=== PATIENT | female | born 1950 | race Caucasian/White ===

== ENCOUNTER 2016-09-25 12:41 | Inpatient (IN) | payer OTHER, MEDICARE ==
[~2016-09-25] VITALS: Ht 165.1 cm; Wt 53.1 kg
[~2016-09-25 12:41] MED LIST: ACIDOPHILUS1 CAP PO; ALENDRONATE SOD70 MG PO; CALCIUM + D 6001 TAB PO; CLEARLAX17 GM/Dose PO; DOCUSATE SOD100 MG PO; DOK PLUS 50 MG-1 TAB PO; DOXYCYCLINE20 MG PO; LIORESAL 10MG T10 MG PO; METOPROLOL TART25 M1 PO; NEURONTIN100 MG PO; PERIDEX 480 ML480 ML PO; PRAVASTATIN20 MG PO; REMERON 15MG TA15 MG PO; TAB-A-VITE1 TA1 PO; TOPAMAX200 MG PO
--- NOTE | 2016-09-25 12:48 | ED MVC/FALL/TRAUMA COMPLAINT ---
History of Present Illness General Chief Complaint: Fall Stated Complaint: BIBA FOR FALL Source: patient, EMS Exam Limitations: dementia Vital Signs & Intake/Output Vital Signs & Intake/Output Vital Signs Date Time Temp Pulse Resp B/P B/P Pulse O2 O2 Flow FiO2 Mean Ox Delivery Rate 09/25 1725 97.6 101 18 132/73 99 Room Air 09/25 1451 97.0 88 20 130/75 96 Room Air 09/25 1247 97.3 73 15 150/67 98 Room Air Room Air 09/25 1247 97.2 72 18 150/67 97 Room Air Allergies Coded Allergies: tuberculin, purified protein deriva (UNKNOWN 09/25/16) Reconcile Medications Baclofen (Lioresal) 10 MG TABLET 1 TAB PO TID TIA (Reported) Calcium/Vitamin D (Calcium + D) 600 MG/200 IU TAB 1 TAB PO BID VIT DEF ( Reported) Chlorhexidine Gluconate (Peridex 480 Ml) 480 ML LIQ 15 ML PO BID UNKNOWN ( Reported) Citalopram Hydrobromide (Citalopram HBr) 10 MG TABLET 1 TAB PO DAILY DEPRESSION (Reported) Docusate Sodium 100 MG CAPSULE 2 CAP PO DAILY UNKNOWN (Reported) Ferrous Sulfate 325 MG (65 MG IRON) TABLET SUPPLEMENT (Reported) Gabapentin (Neurontin) 100 MG CAP 1 CAP PO AT BEDTIME UNKNOWN (Reported) Metoprolol Tartrate 25 MG TABLET 0.5 TAB PO D BP (Reported) Mirtazapine (Remeron 15MG Tab) 15 MG TABLET 0.5 TAB PO QPM UNKNOWN (Reported) MULTIVITAMIN (Tab-A-Marlin) 1 EACH TABLET 1 TAB PO DAILY SUPPLEMENT (Reported) Polyethylene Glycol 3350 (Miralax) 17 GRAM POWD.PACK 1 PAC PO BID CONSTIPATION (Reported) dissolve in water Pravastatin Sodium (Pravastatin) 20 MG TAB 1 TAB PO QPM CHOLESTEROL (Reported ) SENNOSIDES/DOCUSATE SODIUM (Dok Plus Tablet) 8.6 MG-50 MG TABLET 1 TAB PO AT BEDTIME UNKNOWN (Reported) Topiramate (Topamax) 200 MG TAB 1 TAB PO BID UNKNOWN (Reported) Warfarin Sodium (Coumadin) 7.5 MG TABLET 1 TAB PO DAILY THINNER (Reported) Triage Nurses Notes Reviewed? yes HPI: 66 yo F PMH HTN, HLD, A-Fib (on coumadin), CVA presenting with right knee pain s /p fall. Patient was in wheelchair, pushed over small step, fell off onto right side with resulting right knee deformity/crepitus and pain. Unclear head/neck trauma or LOC. C/O right knee pain. Denies SOB, chest pain, abdominal pain, headache, N/V, focal neurologic Sx. (ARISTEO TOBIAS MD) Past History Medical History Any Pertinent Medical History? see below for history Pneumonia Vaccine: 01/27/07 Influenza Vaccine: 01/18/10 Surgical History Surgical History: unobtainable Psychosocial History What is your primary language Romanian Family History Hx Contributory? Yes (ARISTEO TOBIAS MD) Review of Systems Review of Systems Constitutional: Reports: no symptoms. Eyes: Reports: no symptoms. Ears, Nose, Throat, Mouth: Reports: no symptoms. Respiratory: Reports: no symptoms. Cardiovascular: Reports: no symptoms. Gastrointestinal/Abdominal: Reports: no symptoms. Genitourinary: Reports: no symptoms. Musculoskeletal: Reports: joint pain, joint swelling. Skin: Reports: no symptoms. Neurological/Psychological: Reports: no symptoms. All Other Systems: Reviewed and Negative (ARISTEO TOBIAS MD) Physical Exam Physical Exam General Appearance: well developed/nourished, no apparent distress, alert, awake Head: atraumatic, normal appearance Eyes: Bilateral: normal appearance, PERRL, EOMI. Neck: normal inspection, no midline tenderness Respiratory: normal breath sounds, chest non-tender, no respiratory distress Cardiovascular: regular rate/rhythm, normal peripheral pulses Peripheral Pulses: 2+ dorsalis pedis (R), 2+ dorsalis pedis (L) Gastrointestinal: normal bowel sounds, soft, non-tender Back: normal inspection, no vertebral tenderness Neurologic/Psych: no motor/sensory deficits, awake, alert Comments: HEENT: Atraumatic C-Spine: No midline c-spine TTP Chest: No TTP over anterior chest wall or clavicles, equal breath sounds bilaterally Abdomen: Soft and nontender to palpation throughout RLE: TTP with crepitus over distal femur, 2+ DP pulse Core Measures ACS in differential dx? No Severe Sepsis Present: No Septic Shock Present: No (ARISTEO TOBIAS MD) Progress Differential Diagnosis: aoritic dissection, abd injury, C/T/L spine injury, ext injury, ICH, pelvis injury, pnemothorax, spinal cord injury Plan of Care: Orders Procedure Date/time Status Regular Diet 09/26 D Active PROTHROMBIN TIME 09/26 0600 Active CBC WITHOUT DIFFERENTIAL 09/26 0600 Active BASIC ELECTROLYTES PLUS BUN&CR 09/26 0600 Active Nothing by Mouth 09/25 D Active Add-on Test (ER Only) 09/25 1740 Active Pathway - chart 09/25 1548 Active House Staff 09/25 1548 Active Patient Data 09/25 1548 Active Code Status 09/25 1548 Active Patient Data 09/25 1543 Active Admit to inpatient 09/25 1538 Active TROPONIN LEVEL 09/25 1320 Complete PARTIAL THROMBOPLASTIN TIME 09/25 1310 Complete PROTHROMBIN TIME 09/25 1310 Complete CBC WITHOUT DIFFERENTIAL 09/25 1310 Complete BASIC METABOLIC PANEL 09/25 1310 Complete EKG 09/25 1310 Active TYPE & SCREEN (NOT X-MATCH) 09/25 1310 Complete Intake & Output 09/25 1258 Active VTE Mechanical Prophylaxis 09/25 UNK Complete Current Medications Sig/Javier Start time Last Medication Dose Stop Time Status Admin Pravastatin Sodium 20 MG 1700 09/26 1700 AC (Pravachol) Citalopram 10 MG DAILY 09/26 1000 AC Hydrobromide (Celexa) Metoprolol Tartrate 12.5 MG DAILY 09/26 1000 AC (Lopressor) Ferrous Sulfate 325 MG BID 09/25 2200 AC (Feosol) Gabapentin 100 MG AT BEDTIME 09/25 2200 AC (Neurontin) Mirtazapine 7.5 MG QPM 09/25 2200 AC (Remeron) Topiramate 200 MG BID 09/25 2200 AC (Topamax) Acetaminophen 1,000 MG Q6P PRN 09/25 1745 AC (Ofirmev) N/A 1 UNIT (No Carrier) Chlorhexidine 15 ML BID 09/25 1730 AC Gluconate (Peridex 0.12% Oral Rinse) Baclofen 10 MG TID 09/25 1729 AC (Lioresal 10MG Tablet) Ondansetron HCl 4 MG Q6P PRN 09/25 1715 AC (Zofran) Sodium Chloride 1,000 ML Q13H 09/25 1715 AC 06/08 (Normal Saline 0.9%) 09/26 613 1748 Acetaminophen 325 MG Q6 PRN 09/25 1600 AC (Tylenol) Oxycodone HCl 5 MG Q6 PRN 09/25 1600 AC (Roxicodone) Oxycodone/ 2 TAB Q6 PRN 09/25 1600 CAN Acetaminophen (Percocet) Laboratory Tests 09/25/16 1320: Anion Gap 9, Estimated GFR 50 L, BUN/Creatinine Ratio 13.6, Glucose 111 H, Calcium 9.4, Troponin I < 0.01, PT 19.9 H, INR 1.91 H, APTT 31, CBC w Diff NO MAN DIFF REQ, RBC 3.85 L, MCV 90.8, MCH 29.7, RDW 13.8, MPV 7.6, Gran % 78.4 H , Lymphocytes % 15.4 L, Monocytes % 3.2, Eosinophils % 2.4, Basophils % 0.6, Absolute Granulocytes 8.7 H, Absolute Lymphocytes 1.7, Absolute Monocytes 0.4, Absolute Eosinophils 0.3, Absolute Basophils 0.1, PUBS MCHC 32.7 L Physician MDM: 66 yo F on coumadin presenting with right leg pain/deformity s/p fall from wheelchair. VSS, trauma exam as above. DDx: Fracture, dislocation, ICH. CBC, BMP unermarkabkle. CT head/c-spine negative, c-collar cleared without TTP and full ROM. CXR, PXR unermarkable. RLE XR with distal comminuted femur fracture. Dr. Estevez/Orthopedic PA consulted, evaluated patient, reduced fracture deformity, knee immobilizeer placed. Admit to medicine for monitoring, PT, further management. (MICHELINE DONALD,ARISTEO) Departure Departure Disposition: STILL A PATIENT Condition: Stable Clinical Impression Primary Impression: Femur fracture, right Secondary Impressions: Closed head injury, Fall Referrals: IRIS DONALD,Aly MAKI (PCP/Family) Departure Forms: Customer Survey General Discharge Information Admission Note Spoke With: AMAN WYATT M.D Documentation of Exam: Documentation of any treatments & extenuating circumstances including Concerns Regarding Discharge (functional status, medication knowledge or non-compliance, living conditions, etc.) that warrant an admission rather than observation: [ Patient presents with fall out of her wheelchair, taking Coumadin, found to have right distal femoral fracture, patient requires admission for monitoring for decompensation related to femoral fracture, orthopedic consult, IV pain control, physical therapy, if discharged she has a high likelihood of decompensation given her anticoagulated status, possibly leading to .] (MICHELINE DONALD,ARISTEO) PA/OIL WELL FISHING TOOL OPERATOR Co-Sign Statement Statement: ED Attending supervision documentation- [] I saw and evaluated the patient. I have also reviewed all the pertinent lab results and diagnostic results. I agree with the findings and the plan of care as documented in the PA's/OIL WELL FISHING TOOL OPERATOR's documentation. [X] I have reviewed the ED Record and agree with the PA's/OIL WELL FISHING TOOL OPERATOR's documentation. [] Additions or exceptions (if any) to the PAs/OIL WELL FISHING TOOL OPERATOR's note and plan are summarized below: [] (KODI RICHMOND DO
[2016-09-25 13:36] LABS: ABSOLUTE BASOPHIL COUNT 0.1 /CUMM (0.0-0.2); ABSOLUTE EOSINOPHIL COUNT 0.3 /CUMM (0.0-0.7); ABSOLUTE GRANULOCYTE CT 8.7 /CUMM (1.4-6.5); ABSOLUTE LYMPH COUNT 1.7 /CUMM (1.2-3.4); ABSOLUTE MONOCYTE COUNT 0.4 /CUMM (0.10-0.60); BASOPHIL % 0.6 % (0.0-2.0); EOSINOPHIL % 2.4 % (0-5); GRANULOCYTE % 78.4 % (42.2-75.2); MEAN CORPUSCULAR HGB 29.7 PG (27.0-31.0); MEAN CORPUSCULAR HGB CONC 32.7 G/DL (33.0-37.0); MEAN CORPUSCULAR VOLUME 90.8 FL (81.0-99.0); MEAN PLATELET VOLUME 7.6 FL (7.4-10.4); PLATELET COUNT 278 /CUMM (130-400); RBC DISTRIBUTION WIDTH 13.8 % (11.5-14.5); RED BLOOD CELL CT 3.85 /CUMM (4.20-5.40); WHITE BLOOD CELL COUNT 11.2 /CUMM (4.8-10.8)
[2016-09-25 13:45] LABS: PT 19.9 SEC (9.4-12.5); PTT 31 SEC (25-37)
--- NOTE | 2016-09-25 14:55 | RADIOLOGY REPORT ---
EXAMINATION: Pelvis, right femur, right tibia and fibula and right ankle. CLINICAL INFORMATION: Pelvic fracture status post fall. COMPARISON: Right femur 04/02/2010. TECHNIQUE: Right tibia and fibula 2 views. Right ankle 3 views. AP pelvis one view and right femur 2 views. FINDINGS: AP PELVIS: there is old right hip nail in place for an old healed fracture. The left hip appears normal. The AP pelvis and bilateral SI joints are normal. RIGHT FEMUR: There is a comminuted fracture distal femur with possible extension to the intra-articular surface, right knee. There is a right hip nail for an old healed right femoral neck fracture RIGHT TIBIA AND FIBULA: There is no visible acute fracture or dislocation involving right tibia and fibula. The soft tissues are normal. RIGHT ANKLE: There is no visible acute fracture or dislocation seen. The ankle mortise and subtalar joints are normal. There is diffuse osteopenia involving the distal tibia, fibula and the tarsal bones. The soft tissues are normal. IMPRESSION: Comminuted fracture distal right tibia with high suspicion of fracture extension to the articular surface right knee. Rest of the right femur is unremarkable. The right tibia and fibula are intact. There is mild osteopenia. Intact right ankle with mild osteopenia. No fracture seen. There is a right hip nail for an old healed right hip fracture. Otherwise the AP pelvis is unremarkable.
[2016-09-25] MEDS ORDERED: CITALOPRAM HBR10 MG PO (14:56)
[2016-09-25] MEDS ORDERED: FERROUS SULFAT325 M3 (14:58)
[2016-09-25] MEDS ORDERED: MIRALAX17 G1 PO (15:00)
--- NOTE | 2016-09-25 15:00 | CT SCAN REPORT ---
EXAMINATION: CT HEAD AND CERVICAL SPINAL. CLINICAL INFORMATION: Following head trauma. COMPARISON: No relevant prior imaging available. TECHNIQUE: Environmental Economist images were obtained. CT acquisition of the head and cervical spinal was performed without intravenous administration of contrast. Data was reformatted into multiplanar images at the acquisition workstation. DLP: 988.97 mGy-cm. FINDINGS: Head: There is chronic gliosis and encephalomalacia within the vascular territories of the left anterior and middle cerebral artery. 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 There is no acute intracranial hemorrhage or abnormal extra-axial collection. No intracranial mass effect or midline shift. Lateral and third ventricles are proportionate to the subarachnoid spaces. No hydrocephalus. Cruz-white matter differentiation is grossly preserved and there is no evidence of acute territorial infarct. The skull base is intact. There is no mastoid or middle ear effusion. No evidence of active paranasal sinus disease. Cervical spine: There is anatomic alignment and position of the vertebral bodies and posterior elements of the cervical spine the sagittal dimension. Vertebral body heights are preserved. There is no evidence of acute cervical spinal fracture. No abnormal prevertebral soft tissue swelling. There is mild degenerative arthrosis of the atlantodental joint. Grossly no evidence of canal compromise. Soft tissues of the neck including the thyroid gland are unremarkable. Calcified atheromatous plaque is visualized at both carotid bifurcations. Mild pleural-parenchymal scarring at the apices of both lungs. IMPRESSION: Head: There are chronic changes of an aneurysm clipping and old infarcts within the left anterior and middle cerebral artery territories. No evidence of acute intracranial hemorrhage. Cervical spine: No acute cervical spine fracture.
[2016-09-25] MEDS ORDERED: COUMADIN7.5 M1 PO (15:01)
--- NOTE | 2016-09-25 16:28 | PN- Orthopedic ---
Subjective Subjective: Patient present to the ER with a fall from her wheelchair, noted to have a comminuted right distal femur fracture. 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 On chronic coumadin therapy for a fib. Objective Vital Signs and I&Os Vital Signs Date Time Temp Pulse Resp B/P B/P Pulse O2 O2 Flow FiO2 Mean Ox Delivery Rate 09/25 1451 97.0 88 20 130/75 96 Room Air 09/25 1247 97.3 73 15 150/67 98 Room Air Room Air 09/25 1247 97.2 72 18 150/67 97 Room Air Intake & Output 09/25 1600 09/25 0800 09/25 0000 09/24 1600 09/24 0800 09/24 0000 Intake Total Output Total Balance Patient 140 lb Weight Weight Estimated Measurement Method Physical Exam: patient appears to have mild confusion There is dry blood noted in her mouth No respiratory distress Right lower extremity with swelling at the distal femur region and tenderness on palpation. The knee is flexed at 90 and rotated. Gentle traction was applied to the right lower extremity and the extremity was extended into a near anatomic position clinically at the bedside by myself. A knee immobilizer was then applied to the right lower extremity. Neurovascular intact postprocedure. Assessment/Plan Assessment/Plan Full consult to follow by Dr. Estevez later this evening Discussed with Dr. Estevez, patient is a nonambulator, we are not planning any surgical intervention at this time. She was placed in a knee immobilizer by myself at the bedside, positive dorsal pedal pulse distally after procedure. She should be kept nonweightbearing, admitted to medicine for pain medication and monitoring for acute blood loss anemia due to femur fracture and patient being on Coumadin. Would temporarily hold her INR tonight and recheck her H&H tomorrow to assess for blood loss. Core Measures/Miscellaneous Venous Thromboembolism VTE Risk Factors: Age > 40 VTE Contraindications: No Contraindications VTE Diagnosis: No Beta Anurag Is Beta Anurag a Home Med? No Antibiotics Is Patient on Antibiotics? No
--- NOTE | 2016-09-25 16:29 | RADIOLOGY REPORT ---
EXAMINATION: XR PORTABLE CHEST CLINICAL INFORMATION: Fall. Chest pain. COMPARISON: 03/29/2010 TECHNIQUE: Portable frontal view of the chest was obtained. FINDINGS: Cardiomegaly is stable. The image is acquired in obliquity, somewhat obscuring the left base. No definitive consolidation. No pulmonary edema, pleural effusion, or pneumothorax. The bones appear demineralized without definitive acute osseous abnormality. IMPRESSION: Stable cardiomegaly. No definitive acute intrathoracic abnormality, accounting for some obscuration of the left base.
--- NOTE | 2016-09-25 16:30 | History & Physical ---
See Addendum ANJANA LERMA 09/25/16 1610: General Information and HPI MD Statement: I have seen and personally examined PATEL PENG and documented this H&P. The patient is a 66 year old F who presented with a patient stated chief complaint of [right tibia comminuted fracture]. Source of Information: patient, EMS Exam Limitations: no limitations History of Present Illness: Patient is a 66-year-old female long-term resident of [facility] with past medical history of atrial fibrillation on Coumadin, history of hemorrhagic stroke, status post craniotomy with residual right hemiparesis, seizure disorder, depression, GERD, status post left anterior communicating artery aneurysm repair, recurrent bleeding was brought into the ER today after referral at the facility. As per the EMS reports, patient fell down this morning from her wheelchair to the pavement. It was a witnessed mechanical fall. The story is quite unclear. Patient reports that she lost her balance and fell down on the chair landing on her right knee and felt a lot of pain. EMS was called by the facility paperwork and patient was collared. Patient denies any chest pain, shortness of breath, nausea, vomiting, dizziness, aura, seizure-like activity, loss of consciousness. She was brought to the hospital for evaluation immediately. In the ER during examination crepitation was felt over the right knee. Patient was tolerating pain well and was coherent during the examination. In the ED vitals temperature 97.2, pulse 72, respiration 18, blood pressure 150/ 67, saturating 97% on room air Labs showed a white count of 11.2, H&H 11.4/ 35, normal electrolytes, creatinine 1.1(baseline 0.9), BUN 15, INR 1.91. EKG showed atrial fibrillation, QTC 444. Tibiofibular x-ray showed Comminuted fracture distal right tibia with high suspicion of fracture extension to the articular surface right knee. Intact right ankle with mild osteopenia. There is a right hip nail for an old healed right hip fracture. Head CT chronic changes of an aneurysm clipping and old infarcts within the left anterior and middle cerebral artery territories. No evidence of acute intracranial hemorrhage. Cervical spine: No acute cervical spine fracture. Patient received IV morphine and IV Zofran in the ED. Allergies/Medications Allergies: Coded Allergies: tuberculin, purified protein deriva (UNKNOWN 09/25/16) Home Med list Baclofen (Lioresal) 10 MG TABLET 1 TAB PO TID TIA (Reported) Calcium/Vitamin D (Calcium + D) 600 MG/200 IU TAB 1 TAB PO BID VIT DEF ( Reported) Chlorhexidine Gluconate (Peridex 480 Ml) 480 ML LIQ 15 ML PO BID UNKNOWN ( Reported) Citalopram Hydrobromide (Citalopram HBr) 10 MG TABLET 1 TAB PO DAILY DEPRESSION (Reported) Docusate Sodium 100 MG CAPSULE 2 CAP PO DAILY UNKNOWN (Reported) Ferrous Sulfate 325 MG (65 MG IRON) TABLET SUPPLEMENT (Reported) Gabapentin (Neurontin) 100 MG CAP 1 CAP PO AT BEDTIME UNKNOWN (Reported) Metoprolol Tartrate 25 MG TABLET 0.5 TAB PO D BP (Reported) Mirtazapine (Remeron 15MG Tab) 15 MG TABLET 0.5 TAB PO QPM UNKNOWN (Reported) MULTIVITAMIN (Tab-A-Marlin) 1 EACH TABLET 1 TAB PO DAILY SUPPLEMENT (Reported) Polyethylene Glycol 3350 (Miralax) 17 GRAM POWD.PACK 1 PAC PO BID CONSTIPATION (Reported) dissolve in water Pravastatin Sodium (Pravastatin) 20 MG TAB 1 TAB PO QPM CHOLESTEROL (Reported ) SENNOSIDES/DOCUSATE SODIUM (Dok Plus Tablet) 8.6 MG-50 MG TABLET 1 TAB PO AT BEDTIME UNKNOWN (Reported) Topiramate (Topamax) 200 MG TAB 1 TAB PO BID UNKNOWN (Reported) Warfarin Sodium (Coumadin) 7.5 MG TABLET 1 TAB PO DAILY THINNER (Reported) Past History Travel History Traveled to [place] past 21 day No Medical History Neurological: CVA W R SIDE DEFICIT Pneumonia Vaccine: 01/27/07 Influenza Vaccine: 01/18/10 Surgical History Surgical History: arthroscopy Review of Systems Review of Systems Constitutional: Reports: malaise, weakness. EENTM: Reports: no symptoms. Cardiovascular: Reports: no symptoms. Respiratory: Reports: no symptoms. GI: Reports: no symptoms. Genitourinary: Reports: no symptoms. Musculoskeletal: Reports: joint pain (right leg pain). Skin: Reports: no symptoms. Neurological/Psychological: Reports: no symptoms. Exam & Diagnostic Data Last 24 Hrs of Vital Signs/I&O Vital Signs Date Time Temp Pulse Resp B/P B/P Pulse O2 O2 Flow FiO2 Mean Ox Delivery Rate 09/25 1451 97.0 88 20 130/75 96 Room Air 09/25 1247 97.3 73 15 150/67 98 Room Air Room Air 09/25 1247 97.2 72 18 150/67 97 Room Air Intake & Output 09/25 1600 09/25 0800 09/25 0000 Intake Total Output Total Balance Patient 63.503 kg Weight Weight Estimated Measurement Method Physical Exam General Appearance Alert, Oriented X3, Cooperative, No Acute Distress Skin No Rashes, No Breakdown Skin Temp/Moisture Exam: Warm/Dry Sepsis Skin Exam (color): Normal for Ethnicity HEENT Atraumatic, PERRLA, poor dental hygiene, bleeding from the mouth, halitosis Neck Supple, No JVD Lymphatic Cervical nl Cardiovascular Normal S1, irregularly irregular heart Lungs Clear to Auscultation, Normal Air Movement Abdomen tense abdomen Neurological Normal Tone, Sensation Intact, right sided hemiparesis. power 3/5 in left lower and left upper extremity Extremities 1+ pitting edema lower extremities, right extremity shortened and internally rotated Last 24 Hrs of Labs/Олег: Laboratory Tests 09/25/16 1320: Anion Gap 9, Estimated GFR 50 L, BUN/Creatinine Ratio 13.6, Glucose 111 H, Calcium 9.4, PT 19.9 H, INR 1.91 H, APTT 31, CBC w Diff NO MAN DIFF REQ, RBC 3.85 L, MCV 90.8, MCH 29.7, RDW 13.8, MPV 7.6, Gran % 78.4 H, Lymphocytes % 15.4 L, Monocytes % 3.2, Eosinophils % 2.4, Basophils % 0.6, Absolute Granulocytes 8.7 H, Absolute Lymphocytes 1.7, Absolute Monocytes 0.4, Absolute Eosinophils 0.3, Absolute Basophils 0.1, PUBS MCHC 32.7 L Assessment/Plan Assessment: Patient is a 66-year-old female long-term resident of [facility] with past medical history of atrial fibrillation on Coumadin, history of hemorrhagic stroke, status post craniotomy with residual right hemiparesis, seizure disorder, depression, GERD, status post left anterior communicating artery aneurysm repair, recurrent bleeding was brought into the ER today after referral at the facility. In the ED vitals temperature 97.2, pulse 72, respiration 18, blood pressure 150/ 67, saturating 97% on room air Labs showed a white count of 11.2, H&H 11.4/ 35, normal electrolytes, creatinine 1.1(baseline 0.9), BUN 15, INR 1.91. EKG showed atrial fibrillation, QTC 444. Tibiofibular x-ray showed Comminuted fracture distal right tibia with high suspicion of fracture extension to the articular surface right knee. Intact right ankle with mild osteopenia. There is a right hip nail for an old healed right hip fracture. Head CT chronic changes of an aneurysm clipping and old infarcts within the left anterior and middle cerebral artery territories. No evidence of acute intracranial hemorrhage. Cervical spine: No acute cervical spine fracture. Patient received IV morphine and IV Zofran in the ED. Assessment * Right distal tibia comminuted fracture status post mechanical fall * Atrial fibrillation on Coumadin * History of hemorrhagic stroke status post craniotomy, residual right-sided hemiparesis * Recurrent mouth bleeding * Seizure disorder * Depression * GERD Plan * Admit patient to [facility] * Vitals per protocol * Patient was seen by orthopedics in the ED, the plan is to conservatively manage the patient since she is nonambulatory and has hemiparesis on the right side. * Knee immobilizer placed at bedside by orthopedic PA. * Pain control with oxycodone and IV Tylenol as needed * Nausea with IV Zofran * Continue Topamax, mirtazapine, gabapentin seizures. * Dental hygeine with Peridox mouthcare * Hold Coumadin for now as per surgery as patient has high risk of bleeding into the fracture * DVT prophylaxis Coumadin and Alps * Full code * Severe pain pathway * Regular diet As Ranked By This Provider Problem List: 1. Fall 2. Fracture, femur, distal Core Measures/Miscellaneous Acute Coronary Syndrome ACS Diagnosis: No Cerebrovascular Accident CVA/TIA Diagnosis: No Congestive Heart Failure CHF Diagnosis: No VTE (View Protocol) VTE Risk Factors: Age > 40, Inflammatory bowel Dx No [facility] VTE prophylaxis d/t: No contraindications No VTE Pharm Prophylaxis d/t: Surgical contraindication (bleeding at fracture site) VTE Diagnosis: No VTE Type: NONE VTE Confirmed by (Test): NONE Sepsis (View Protocol) Severe Sepsis Present: No Septic Shock Septic Shock Present: No Miscellaneous Documentation Attending Case Discussed With: CONRO ASIF MDESHA Primary Care Physician: Aly SIMMONS MD GLYNN Patient sees these Specialists none Level of Patient Care: General Medicine EDMUNDO DONALD,SHIVAMDeja 09/25/16 1725: Attending MD Review Statement Attending Statement Attending MD Statement: examined this patient, discuss w/resident/PA/WAREHOUSE ORDER FILLER, agreed w/resident/PA/WAREHOUSE ORDER FILLER, reviewed EMR data (avail), discussed with nursing, amended to note Attending Assessment/Plan: 66-year-old female with hx of afib on coumadin, long-term residence [facility] facility was brought after an unwitnessed fall from her wheelchair. Baseline patient is wheelchair bound. She is status post right hip fracture in the past with hip pinning. Brought here for evaluation where imaging reveals right distal tibia fracture. Due to her nonambulatory status, The orthopedic service recommends nonsurgical management at present. On examination she is not in any acute distress. She is found to have old clotted blood in her oral cavity. Apparently this is chronic and recurrent. Right leg is in a cast. Distal pulses are palpable. She is able to move her toes. Problems: 1. Right distal tibia fracture. 2. Atrial fibrillation on anticoagulation 3. History of stroke with residual right hemiparesis 4. Recurrent oral bleeding with severe halitosis. 5. Seizure disorder Plan: -Admit to the general medicine service -Since pt is non-ambulatory at base-line, no surgical intervention is planned at present. -Knee imobilizer is currently in place. -Hold Coumadin per orthopedic service and monitor Hb level. - Pain mgt with IV tylenol. May use oxicodone for breakthrough pain.
--- NOTE | 2016-09-25 18:28 | Cons- Orthopedic ---
General Information and HPI Consulting Request Date of Consult: 09/25/16 Requested By: SEAN ASIF MD Reason for Consult: RIGHT FEMUR FRACTURE CLOSED DISTAL THIRD Exam Limitations: unable to give history, poor historian History of Present Illness: patient with supposed fall from wheelchair sustained close right femur fracture Allergies/Medications Allergies: Coded Allergies: tuberculin, purified protein deriva (UNKNOWN 09/25/16) Home Med List: Baclofen (Lioresal) 10 MG TABLET 1 TAB PO TID TIA (Reported) Calcium/Vitamin D (Calcium + D) 600 MG/200 IU TAB 1 TAB PO BID VIT DEF ( Reported) Chlorhexidine Gluconate (Peridex 480 Ml) 480 ML LIQ 15 ML PO BID UNKNOWN ( Reported) Citalopram Hydrobromide (Citalopram HBr) 10 MG TABLET 1 TAB PO DAILY DEPRESSION (Reported) Docusate Sodium 100 MG CAPSULE 2 CAP PO DAILY UNKNOWN (Reported) Ferrous Sulfate 325 MG (65 MG IRON) TABLET SUPPLEMENT (Reported) Gabapentin (Neurontin) 100 MG CAP 1 CAP PO AT BEDTIME UNKNOWN (Reported) Metoprolol Tartrate 25 MG TABLET 0.5 TAB PO D BP (Reported) Mirtazapine (Remeron 15MG Tab) 15 MG TABLET 0.5 TAB PO QPM UNKNOWN (Reported) MULTIVITAMIN (Tab-A-Marlin) 1 EACH TABLET 1 TAB PO DAILY SUPPLEMENT (Reported) Polyethylene Glycol 3350 (Miralax) 17 GRAM POWD.PACK 1 PAC PO BID CONSTIPATION (Reported) dissolve in water Pravastatin Sodium (Pravastatin) 20 MG TAB 1 TAB PO QPM CHOLESTEROL (Reported ) SENNOSIDES/DOCUSATE SODIUM (Dok Plus Tablet) 8.6 MG-50 MG TABLET 1 TAB PO AT BEDTIME UNKNOWN (Reported) Topiramate (Topamax) 200 MG TAB 1 TAB PO BID UNKNOWN (Reported) Warfarin Sodium (Coumadin) 7.5 MG TABLET 1 TAB PO DAILY THINNER (Reported) Past History Medical History Neurological: CVA W R SIDE DEFICIT Surgical History Pertinent Surgical History: unobtainable Exam & Diagnostic Data Vital Signs and I&O Vital Signs Date Time Temp Pulse Resp B/P B/P Pulse O2 O2 Flow FiO2 Mean Ox Delivery Rate 09/25 1725 97.6 101 18 132/73 99 Room Air 09/25 1451 97.0 88 20 130/75 96 Room Air 09/25 1247 97.3 73 15 150/67 98 Room Air Room Air 09/25 1247 97.2 72 18 150/67 97 Room Air Intake & Output 09/25 1600 09/25 0800 09/25 0000 09/24 1600 09/24 0800 09/24 0000 Intake Total Output Total Balance Patient 140 lb Weight Weight Estimated Measurement Method Physical Exam: PATIENT UNABLE TO GIVE INFORMATION REGARDING HER FALL FROM A WHEELCHAIR. HAD A PRIOR RIGHT HIPFRACTURE NOW WITH A RIGHT CLOSED FEMUR FRACTURE. KNEE IMMOBILIZER IN PLACE HAS WEAKNESS RIGHT LOWER EXTREMITY FROM PRIOR cva.pulses are normal. Assessment/Plan Assessment/Plan has closed femur fracture right femur in a nonambulator.immobilizer should be on at all times .if transfers to wheelchair elevate the leg rest on right leg should stay in extension.can open the immobilzer to wash anterior leg than reapply.no surgery indicated currently. Consult Acknowledgment - Thank you for your consult request. Attending MD Review Statement Attending Statement Attending MD Statement: examined this patient
[2016-09-25 19:02] VITALS: BP 128/68
[2016-09-25 21:42] VITALS: BP 118/82
--- NOTE | 2016-09-26 07:12 | PN- Housestaff ---
SOCORRO CAI MD 09/26/16 0712: Subjective Follow-up For: Mechanical fall Right femur fracture Atrial fibrillation on Coumadin History of hemorrhagic stroke with residual right-sided hemiparesis Recurrent oral bleeding Subjective: Patient is seen and examined at bedside this AM. She is laying comfortably in bed without acute distress. She has obvious oropharyngeal dry, crusted blood which she reports is chronic. She admits to pain to the RLE when it is palpated, otherwise she has no pain. She continues in a RLE brace. Review of Systems Constitutional: Denies: chills, fever. EENTM: Denies: blurred vision, visual changes, hearing changes. Cardiovascular: Denies: chest pain, palpitations. Respiratory: Denies: cough, short of breath. Gastrointestinal: Denies: abdominal pain, melena, nausea. Genitourinary: Denies: dysuria. Musculoskeletal: Reports: muscle pain (RLE when palpated). Denies: back pain. Skin: Denies: lumps, rash. Neurological/Psychological: Reports: numbness, pre-existing deficit (Right hemiparesis). Denies: confusion, headache. Hematologic/Endocrine: Denies: bruising, bleeding. Objective Last 24 Hrs of Vital Signs/I&O Vital Signs Date Time Temp Pulse Resp B/P B/P Pulse O2 O2 Flow FiO2 Mean Ox Delivery Rate 09/26 1429 98.7 105 20 118/72 97 Room Air 09/26 1126 98.6 101 20 112/78 99 Room Air 09/26 0800 Room Air 09/25 2142 98.2 82 20 118/82 93 Room Air 09/25 1902 98.1 103 16 128/68 98 Room Air 09/25 1725 97.6 101 18 132/73 99 Room Air Intake & Output 09/26 1600 09/26 0800 09/26 0000 Intake Total 1500 600 100 Output Total Balance 1500 600 100 Intake, IV 0 600 Intake, Oral 1500 0 100 Number 0 1 Bowel Movements Patient 117 lb Weight Physical Exam General Appearance: Alert, Oriented X3, Cooperative, No Acute Distress Skin: No Rashes, No Significant Lesion HEENT: Atraumatic, PERRLA, EOMI, Dried blood over gums and on oral mucosa, poor denition with obvious gum disease Neck: Supple, No JVD, No thryomegaly Lymphatic: Cervical nl Cardiovascular: irregularly irregular Lungs: Normal Air Movement Abdomen: Normal Bowel Sounds, Soft, No Tenderness Neurological: Normal Speech, Normal Tone Extremities: Bilateral extremities slightly cool to touch, RLE externally rotated, diminished dorsalis pedis pulse, slightly swollen Current Medications: Current Medications Sig/Javier Start time Last Medication Dose Route Stop Time Status Admin Acetaminophen 1,000 MG Q6P PRN 09/25 1745 AC N/A 1 UNIT IV Acetaminophen 325 MG Q6 PRN 09/25 1600 DC PO Baclofen 10 MG TID 09/25 1729 AC 09/26 PO 1612 Chlorhexidine 15 ML BID 09/25 173 AC 09/25 Gluconate PO 2134 Citalopram 10 MG DAILY 09/26 1000 AC 09/26 Hydrobromide PO 1103 Ferrous Sulfate 325 MG BID 09/25 2199 AC 09/26 PO 1103 Gabapentin 100 MG AT BEDTIME 09/25 220 AC 09/25 PO 2134 Metoprolol Tartrate 12.5 MG DAILY 09/26 1000 AC 09/26 PO 1103 Mirtazapine 7.5 MG QPM 09/25 220 AC 09/25 PO 2134 Morphine Sulfate 0 .STK-MED ONE 09/25 1732 DC .ROUTE Morphine Sulfate 2 MG Q4P PRN 09/25 1715 DC 09/25 IV 1740 Ondansetron HCl 4 MG Q6P PRN 09/25 1715 AC IV Oxycodone HCl 5 MG .STK-MED ONE 09/26 0544 DC PO 09/26 0545 Oxycodone HCl 5 MG Q6 PRN 09/25 1600 AC 09/26 PO 1220 Patient Medication 1 ED .STK-MED ONE 09/26 1404 DC Teaching ED 09/26 1405 Pravastatin Sodium 20 MG 1700 09/26 1700 AC 09/26 PO 1612 Sodium Chloride 1,000 ML Q13H 09/25 1715 DC 06/08 IV 09/26 0614 1748 Topiramate 200 MG BID 09/25 2199 AC 09/26 PO 1103 Warfarin Sodium 5 MG COUMADIN 1700 09/26 170 AC 09/26 PO 09/26 2359 1612 Last 24 Hrs of Lab/Олег Results Last 24 Hrs of Labs/Mics: Laboratory Tests 09/26/16 0802: Anion Gap 10, Estimated GFR 56 L, BUN/Creatinine Ratio 16.0, Creatine Kinase 178 H, PT 21.7 H, INR 2.08 H, CBC w Diff NO MAN DIFF REQ, RBC 3.63 L, MCV 90.8, MCH 29.8, RDW 13.9, MPV 8.0, Gran % 75.6 H, Lymphocytes % 16.1 L, Monocytes % 7.1, Eosinophils % 0.6, Basophils % 0.6, Absolute Granulocytes 7.3 H, Absolute Lymphocytes 1.6, Absolute Monocytes 0.7 H, Absolute Eosinophils 0.1 , Absolute Basophils 0.1, PUBS MCHC 32.8 L Assessment/Plan Assessment: Ms. Berman is a pleasant 66 year old female with PMH atrial fibrillation on coumadin, history of hemorrhagic stroke status post craniotomy with residual right-sided hemiparesis, seizure disorder, depression, GERD, prior left anterior communicating artery aneurysm repair and recurrent oral bleeding who was brought to the [place] ED from [facility] after a witnessed fall out of a wheel chair. In the ED: Vital signs showed T 97.2, HR 72, RR 18, BP150/67, O2 97% on room air. Labs showed: WBC 11.2, H&H 11.4/ 35, normal electrolytes, creatinine 1.1 ( baseline 0.9), BUN 15, INR 1.91. Imaging showed: comminuted fracture distal femur with possible extension to the intra-articular surface, right knee. There is a right hip nail for an old healed right femoral neck fracture. Patient was admitted to the general medicine floor and the following is the management: 1. Mechanical fall with right femur fracture in non-ambulatory patient * Patient s/p traction and bracing by orthopedics on 09/25/16 * Patient is pain free except with palpation; provide roxicodone PRN for moderate to severe pain * No surgery at this time, will proceed with conservative management * Continue strict immobilization of right lower extremity * If patient transferred to wheel chair, elevate left rest and keep leg in extension * Monitor for decreased dorsalis pedis pulses/compartment syndrome/bleeding * Baclofen TID 2. Atrial fibrillation on coumadin * Stable, chronic * Check INR daily and dose coumadin accordingly * 5 mg given today, home dose is 7.5 mg * Continue metoprolol for rate control 3. History of seizures * Continue topiramate 4. Oropharyngeal bleeding * Continue oral care with peridex mouth wash FULL CODE DVTP: Warfarin Regular diet Mild to severe pain pathway Problem List: 1. Fracture, femur, distal 2. Fall Pain Ratin Pain Location: n/a Pain Goal: Remain pain free Pain Plan: Roxicodone PRN Tomorrow's Labs & Rationales: CBC (monitor for bleeding) INR (to dose coumadin) YEFRI DONALD,SEAN 09/26/16 1252: Attending MD Review Statement Attending Statement Attending MD Statement: examined this patient, discuss w/resident/PA/SURVEYOR GEODETIC, agreed w/resident/PA/SURVEYOR GEODETIC, reviewed EMR data (avail), discussed with nursing, discussed with case mgmt, reviewed images, amended to note Attending Assessment/Plan: Patient seen and examined, she does complain of some pain but says that pain medicine is helping. She had been seen by orthopedic and her right lower extremity is in immobilizer. Vital Signs Date Time Temp Pulse Resp B/P B/P Pulse O2 O2 Flow FiO2 Mean Ox Delivery Rate 09/26 1126 98.6 101 20 112/78 99 Room Air 09/26 0800 Room Air 09/25 2142 98.2 82 20 118/82 93 Room Air / 1902 98.1 103 16 128/68 98 Room Air /08 1725 97.6 101 18 132/73 99 Room Air /08 1451 97.0 88 20 130/75 96 Room Air on exam; aox3, nad. cv; s1,s2, rrr resp; clear abd; soft, nt, bs+ ext; no edema, Laboratory Tests 09/26 09/25 0802 1320 Chemistry Sodium (137 - 145 mmol/L) 142 141 Potassium (3.5 - 5.1 mmol/L) 4.2 4.3 Chloride (98 - 107 mmol/L) 111 H 110 H Carbon Dioxide (22 - 30 mmol/L) 21 L 22 Anion Gap (5 - 16) 10 9 BUN (7 - 17 mg/dL) 16 15 Creatinine (0.5 - 1.0 mg/dL) 1.0 1.1 H Estimated GFR (>60 ml/min) 56 L 50 L BUN/Creatinine Ratio (7 - 25 %) 16.0 13.6 Glucose (65 - 99 mg/dL) 111 H Calcium (8.4 - 10.2 mg/dL) 9.4 Creatine Kinase (30 - 135 U/L) 178 H Troponin I (< 0.11 ng/ml) < 0.01 Coagulation PT (9.4 - 12.5 SEC) 21.7 H 19.9 H INR (0.90 - 1.19) 2.08 H 1.91 H APTT (25 - 37 SEC) 31 Hematology CBC w Diff NO MAN DIFF REQ NO MAN DIFF REQ WBC (4.8 - 10.8 /CUMM) 9.7 11.2 H RBC (4.20 - 5.40 /CUMM) 3.63 L 3.85 L Hgb (12.0 - 16.0 G/DL) 10.8 L 11.4 L Hct (37 - 47 %) 32.9 L 35.0 L MCV (81.0 - 99.0 FL) 90.8 90.8 MCH (27.0 - 31.0 PG) 29.8 29.7 RDW (11.5 - 14.5 %) 13.9 13.8 Plt Count (130 - 400 /CUMM) 265 278 MPV (7.4 - 10.4 FL) 8.0 7.6 Gran % (42.2 - 75.2 %) 75.6 H 78.4 H Lymphocytes % (20.5 - 51.1 %) 16.1 L 15.4 L Monocytes % (1.7 - 9.3 %) 7.1 3.2 Eosinophils % (0 - 5 %) 0.6 2.4 Basophils % (0.0 - 2.0 %) 0.6 0.6 Absolute Granulocytes (1.4 - 6.5 /CUMM) 7.3 H 8.7 H Absolute Lymphocytes (1.2 - 3.4 /CUMM) 1.6 1.7 Absolute Monocytes (0.10 - 0.60 /CUMM) 0.7 H 0.4 Absolute Eosinophils (0.0 - 0.7 /CUMM) 0.1 0.3 Absolute Basophils (0.0 - 0.2 /CUMM) 0.1 0.1 PUBS MCHC (33.0 - 37.0 G/DL) 32.8 L 32.7 L A/P; 66 y/o F with pmh sig for atrial fibrillation on Coumadin, history of hemorrhagic stroke, status post craniotomy with residual right hemiparesis, seizure disorder, depression, GERD, status post left anterior communicating artery aneurysm repair, admitted with a fall and found to have right-sided. closed femur fracture. Patient seen by orthopedic and conservative management was recommended. Patient is now in immobilizer. Continue current pain regimen as it seems to be working. Patient will need to go back to her facility. Continue all other current home medications, including Coumadin. INR therapeutic therefore I will continue the home dose. check CK to r/o rhabdo.
[2016-09-26 09:01] LABS: PT 21.7 SEC (9.4-12.5)
[2016-09-26 09:05] LABS: ABSOLUTE BASOPHIL COUNT 0.1 /CUMM (0.0-0.2); ABSOLUTE EOSINOPHIL COUNT 0.1 /CUMM (0.0-0.7); ABSOLUTE GRANULOCYTE CT 7.3 /CUMM (1.4-6.5); ABSOLUTE LYMPH COUNT 1.6 /CUMM (1.2-3.4); ABSOLUTE MONOCYTE COUNT 0.7 /CUMM (0.10-0.60); BASOPHIL % 0.6 % (0.0-2.0); EOSINOPHIL % 0.6 % (0-5); GRANULOCYTE % 75.6 % (42.2-75.2); HEMATOCRIT 32.9 % (37-47); MEAN CORPUSCULAR HGB 29.8 PG (27.0-31.0); MEAN CORPUSCULAR HGB CONC 32.8 G/DL (33.0-37.0); MEAN CORPUSCULAR VOLUME 90.8 FL (81.0-99.0); PLATELET COUNT 265 /CUMM (130-400); RBC DISTRIBUTION WIDTH 13.9 % (11.5-14.5); RED BLOOD CELL CT 3.63 /CUMM (4.20-5.40); WHITE BLOOD CELL COUNT 9.7 /CUMM (4.8-10.8)
--- NOTE | 2016-09-26 09:14 | Discharge Summary ---
Visit Information Visit Dates Admission Date: 09/25/16 Discharge Date: 09/28/2016 Hospital Course Course Attending Physician: SEAN ASIF MD Primary Care Physician: Aly SIMMONS MD Allergies: Coded Allergies: tuberculin, purified protein deriva (UNKNOWN 09/25/16) Discharge Instructions Medications at Discharge Discharge Medications: Continue taking these medications: Baclofen (Lioresal) 10 MG TABLET 1 Tablet ORAL THREE TIMES DAILY Calcium/Vitamin D (Calcium + D) 600 MG/200 IU TAB 1 Tablet ORAL TWICE DAILY Chlorhexidine Gluconate (Peridex 480 Ml) 480 ML LIQ 15 Milliliters ORAL TWICE DAILY Docusate Sodium (Docusate Sodium) 100 MG CAPSULE 2 Capsule ORAL DAILY SENNOSIDES/DOCUSATE SODIUM (Dok Plus Tablet) 8.6 MG-50 MG TABLET 1 Tablet ORAL AT BEDTIME Gabapentin (Neurontin) 100 MG CAP 1 Capsule ORAL AT BEDTIME Metoprolol Tartrate (Metoprolol Tartrate) 25 MG TABLET 0.5 Tablet ORAL Every Day Mirtazapine (Remeron 15MG Tab) 15 MG TABLET 0.5 Tablet ORAL Every night Pravastatin Sodium (Pravastatin) 20 MG TAB 1 Tablet ORAL Every night MULTIVITAMIN (Tab-A-Marlin) 1 EACH TABLET 1 Tablet ORAL DAILY Topiramate (Topamax) 200 MG TAB 1 Tablet ORAL TWICE DAILY Citalopram Hydrobromide (Citalopram HBr) 10 MG TABLET 1 Tablet ORAL DAILY Qty = 30 Ferrous Sulfate (Ferrous Sulfate) 325 MG (65 MG IRON) TABLET Polyethylene Glycol 3350 (Miralax) 17 GRAM POWD.PACK 1 Packet ORAL TWICE DAILY Instructions: dissolve in water Warfarin Sodium (Coumadin) 7.5 MG TABLET 1 Tablet ORAL DAILY Start taking the following new medications: Oxycodone HCl (Oxycodone HCl) 5 MG CAPSULE 1 Capsule ORAL EVERY SIX HOURS NEEDED as needed for MODERATE TO SEVERE PAIN Qty = 1 No Refills Mirtazapine (Remeron 15MG Tab) 15 MG TABLET 0.5 Tablet ORAL Every night Pravastatin Sodium (Pravastatin) 20 MG TAB 1 Tablet ORAL Every night MULTIVITAMIN (Tab-A-Marlin) 1 EACH TABLET 1 Tablet ORAL DAILY Topiramate (Topamax) 200 MG TAB 1 Tablet ORAL TWICE DAILY Citalopram Hydrobromide (Citalopram HBr) 10 MG TABLET 1 Tablet ORAL DAILY Qty = 30 Ferrous Sulfate (Ferrous Sulfate) 325 MG (65 MG IRON) TABLET Polyethylene Glycol 3350 (Miralax) 17 GRAM POWD.PACK 1 Packet ORAL TWICE DAILY Instructions: dissolve in water Warfarin Sodium (Coumadin) 7.5 MG TABLET 1 Tablet ORAL DAILY Start taking the following new medications: Oxycodone HCl (Oxycodone HCl) 5 MG CAPSULE 1 Capsule ORAL EVERY SIX HOURS NEEDED as needed for MODERATE TO SEVERE PAIN Qty = 1 No Refills
[2016-09-26 11:26] VITALS: BP 11/78; BP 112/78
--- NOTE | 2016-09-26 13:42 | PN- Student ---
Subjective Subjective: Medical Student Daily Progress Note: Rhona Berman was admitted on 09/25/16 for distal right femur fracture 2/2 mechanical fall. There were no overnight events. Her pain is well controlled with Roxicodone 5mg q6h PRN. She complains of some right arm soreness, which she states has been present for a long time. She additionally states her legs feel cold, and the right leg hurts only when touched. She denies CP, SOB, abdominal distress, and pain/pressure in right lower extremity. Current Medications Sig/Javier Start time Last Medication Dose Route Stop Time Status Admin Acetaminophen 1,000 MG Q6P PRN 09/25 1745 AC N/A 1 UNIT IV Acetaminophen 325 MG Q6 PRN 09/25 1600 DC PO Baclofen 10 MG TID 09/25 1729 AC 09/26 PO 1103 Chlorhexidine 15 ML BID 09/25 1730 AC 09/25 Gluconate PO 2134 Citalopram 10 MG DAILY 09/26 1000 AC 09/26 Hydrobromide PO 1103 Ferrous Sulfate 325 MG BID 09/25 2200 AC 09/26 PO 1103 Gabapentin 100 MG AT BEDTIME 09/25 2200 AC 09/25 PO 2134 Heparin Sodium 5,000 UNIT Q8 09/25 1547 DC (Porcine) SC Metoprolol Tartrate 12.5 MG DAILY 09/26 1000 AC 09/26 PO 1103 Mirtazapine 7.5 MG QPM 09/25 2200 AC 09/25 PO 2134 Morphine Sulfate 0 .STK-MED ONE 09/25 1732 DC .ROUTE Morphine Sulfate 2 MG Q4P PRN 09/25 1715 DC 09/25 IV 1740 Morphine Sulfate 4 MG ONCE ONE 09/25 1345 DC /08 IV 09/25 1346 1343 Morphine Sulfate 0 .STK-MED ONE 09/25 1343 DC .ROUTE Ondansetron HCl 4 MG Q6P PRN 09/25 1715 AC IV Ondansetron HCl 4 MG ONCE ONE 09/25 1345 DC /08 IV 09/25 1346 1340 Ondansetron HCl 0 .STK-MED ONE 09/25 1343 DC .ROUTE Oxycodone HCl 5 MG Q6 PRN 09/25 1600 AC 09/26 PO 1220 Oxycodone/ 2 TAB Q6 PRN 09/25 1600 CAN Acetaminophen PO Pravastatin Sodium 20 MG 1700 09/26 1700 AC PO Sodium Chloride 1,000 ML Q13H 09/25 1715 DC 09/25 IV 09/26 0614 1748 Topiramate 200 MG BID 09/25 2200 AC 09/26 PO 1103 Objective Objective: Vital Signs Date Time Temp Pulse Resp B/P B/P Pulse O2 O2 Flow FiO2 Mean Ox Delivery Rate 09/26 1126 98.6 101 20 112/78 99 Room Air 09/26 0800 Room Air 09/25 2142 98.2 82 20 118/82 93 Room Air 09/25 1902 98.1 103 16 128/68 98 Room Air 09/25 1725 97.6 101 18 132/73 99 Room Air 09/25 1451 97.0 88 20 130/75 96 Room Air Intake & Output 09/26 1600 09/26 0800 09/26 0000 Intake Total 600 100 Output Total Balance 600 100 Intake, IV 600 Intake, Oral 0 100 Number 1 Bowel Movements Patient 117 lb Weight General: resting comfortably in bed, no acute distress HEENT: lips and oral mucosa covered in dried blood. Oral hygiene revealed poor dentition, and poor oral health. Gums appear to be bleeding. Neck: supple without lymphadenopathy CV: irregular, mildly tachycardic. No murmurs, rubs, or gallops Pulmonary: CTA with normal air movement GI: abdomen soft and non-tender. Bowel sounds present Extremities: BLE with trace non-pitting edema. RLE in immobilizer. Right leg and foot feel tight/taut as compared to left. Distal pulses on right difficult to appreciate. Bilateral feet are cool to touch. Neuro: residual right hemiparesis noted. Sensation intact. Moves left upper and lower extremities spontaneously. Psych: cooperative with exam. Mildly flat affect. Results Results: Laboratory Tests 09/26/16 0802: Anion Gap 10, Estimated GFR 56 L, BUN/Creatinine Ratio 16.0 Creatine Kinase 178 H PT 21.7 H, INR 2.08 H CBC w Diff NO MAN DIFF REQ, RBC 3.63 L, MCV 90.8, MCH 29.8, RDW 13.9, MPV 8.0, Gran % 75.6 H, Lymphocytes % 16.1 L, Monocytes % 7.1, Eosinophils % 0.6, Basophils % 0.6, Absolute Granulocytes 7.3 H, Absolute Lymphocytes 1.6, Absolute Monocytes 0.7 H, Absolute Eosinophils 0.1, Absolute Basophils 0.1, PUBS MCHC 32.8 L 09/25/16 RLE XR series: AP PELVIS: there is old right hip nail in place for an old healed fracture. The left hip appears normal. The AP pelvis and bilateral SI joints are normal. RIGHT FEMUR: There is a comminuted fracture distal femur with possible extension to the intra-articular surface, right knee. There is a right hip nail for an old healed right femoral neck fracture RIGHT TIBIA AND FIBULA: There is no visible acute fracture or dislocation involving right tibia and fibula. The soft tissues are normal. RIGHT ANKLE: There is no visible acute fracture or dislocation seen. The ankle mortise and subtalar joints are normal. There is diffuse osteopenia involving the distal tibia, fibula and the tarsal bones. The soft tissues are normal. 09/25/16 CT head and neck: Head: There are chronic changes of an aneurysm clipping and old infarcts within the left anterior and middle cerebral artery territories. No evidence of acute intracranial hemorrhage. Cervical spine: No acute cervical spine fracture. 09/25/16 CXR: IMPRESSION: Stable cardiomegaly. 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 Problem List: 1. Distal Right Femur fracture 2/2 mechanical fall 2. Atrial Fibrillation 3. History of CVA with residual right hemiparesis 4. Recurrent oral bleeding 5. History of Falls 6. Depression Plan: Distal Right Femur Fracture 2/2 Mechanical Fall: isolated injury. Right hip was previously fractured 2/2 fall, IM nailing of that injury is intact. Pt has been seen by ortho, who feels she is not a surgical candidate d/t her use of Coumadin , residual hemiparesis, and relative immobility. Traction was applied, followed by immobilizer per ortho. H&H slightly decreased to 10.8/32.9 (11.4/35.0 on admission). * Continue conservative management per ortho recommendations * Daily CBC to monitor for ABLA * Keep patient non-weightbearing * Check CK to r/o compartment syndrome * Monitor for s/s of compartment syndrome, including increased swelling, tightness, loss of pulses, and extreme pain * US Doppler of RLE was considered to eval for thrombosis, however is CI in this patient d/t manipulation and interference with previously applied traction/ immobility recommendations Atrial Fibrillation: Is on Coumadin 7.5mg as outpatient. Was being temporarily held after admission. Will be resuming today. * Continue Coumadin at 5mg daily * Monitor PT, INR * Continue to monitor for s/s of bleeding in RLE History of CVA with residual right hemiparesis: prior hemorrhagic stroke. Is residential assisted resident 2/2 to this event. Wheelchair dependent. No acute pathology seen on admission imaging. * Continue to monitor for newly developing neurological deficits Recurrent oral bleeding: Has been noted in [facility] records since at least 2009. Attempted to contact son to obtain further information on any prior workup, however was unsuccessful in contacting him. After oral hygiene was performed by nursing staff, it appears the bleeding is related to poor dental health. * Continue outpatient Chlorhexadine Gluconate 15mL BID mouthwash * Recommend follow up with dentist upon discharge History of Falls: Prior right hip fracture was 2/2 to fall in 2009. Likely related to right hemiparesis and wheelchair dependence after hemorrhagic stroke. * Fall precautions, including: keep table, call porter, and possessions within reach; educate patient on calling for assistance; red no-slip socks. Depression: Is on Citalopram 10mg as outpatient. * Continue Citalopram as inpatient Continue outpatient medication regimen, including Baclofen 10mg TID, Calcium + Vitamin D supplement, Docusate 200 mg, Sennosides/Docusate 8.6mg - 50 mg, Ferrous Sulfate, Gabapentin 100mg at night, Metoprolol 25mg x 0.5 tab, Mirtazapine 15mg x 0.5 tab at night, multivitamin, Miralax BID PRN, Pravastatin 20 mg daily, and Topamax 200mg BID. Disposition: Will return to [facility] upon discharge. Code Status: Full Diet: regular DVT prophylaxis: Coumadin Pain Control: Acetaminophen, Roxicodone per pain pathways
--- NOTE | 2016-09-26 13:57 | Patient Discharge Instructions ---
Discharge Instructions General Discharge Information You were seen/treated for: Right femur fracture Acute Coronary Syndrome Inclusion Criteria At DC or during hospital stay patient has or had the following: ACS DIAGNOSIS No Discharge Core Measures Meds if any: Prescribed or Continued at Discharge Meds if any: NOT Prescribed or Continued at Discharge Congestive Heart Failure Inclusion Criteria At DC or during hospital stay patient has or had the following: CHF DIAGNOSIS No Discharge Core Measures Meds if any: Prescribed or Continued at Discharge Meds if any: NOT Prescribed or Continued at Discharge Cerebrovascular accident Inclusion Criteria At DC or during hospital stay patient has or had the following: CVA/TIA Diagnosis No Discharge Core Measures Meds if any: Prescribed or Continued at Discharge Meds if any: NOT Prescribed or Continued at Discharge Venous thromboembolism Inclusion Criteria VTE Diagnosis No VTE Type NONE VTE Confirmed by (Test) NONE Discharge Core Measures - Per Current guidelines, there needs to be overlap - treatment for the first 5 days of Warfarin therapy. - If discharged on Warfarin prior to 5 days of - overlap therapy, the patient will need to be - assessed for post discharge needs including - *Post discharge parental anticoagulation - *Warfarin and/or parental anticoagulation education - *Follow up date to check INR post discharge At least 5 days overlap therapy as Inpatient No Meds if any: Prescribed or Continued at Discharge Note: Overlap Therapy is Warfarin and Anticoagulant Meds if any: NOT Prescribed or Continued at Discharge
[2016-09-26 14:29] VITALS: BP 118/72
[2016-09-26] MEDS ORDERED: OXYCODONE HCL5 M2 PO (15:32)
[2016-09-26 23:08] VITALS: BP 140/82
[2016-09-27 06:00] VITALS: BP 130/60
[2016-09-27 08:18] LABS: PT 22.2 SEC (9.4-12.5)
--- NOTE | 2016-09-27 08:29 | PN- Housestaff ---
See Addendum PAYAM DONALD,[facility] 09/27/16 0829: Subjective Follow-up For: Mechanical fall Right femur fracture Atrial fibrillation on Coumadin History of hemorrhagic stroke with residual right-sided hemiparesis Recurrent oral bleeding Subjective: Patient was seen and examined this morning, lying comfortably in bed, reported diarrhea that seems to be since before admission, denied abdominal pain, nausea or vomiting. INR is therapeutic, will dose 5 mg Coumadin today. Vital signs are stable, no overnight events were reported by the nurse of the patient. Review of Systems Constitutional: Reports: see HPI. Objective Last 24 Hrs of Vital Signs/I&O Vital Signs Date Time Temp Pulse Resp B/P B/P Pulse O2 O2 Flow FiO2 Mean Ox Delivery Rate 09/27 1041 113 142/82 09/27 06 98.3 102 16 130/60 99 Room Air 09/26 2308 98.2 80 18 140/82 98 Room Air 09/26 1804 98 09/26 1429 98.7 105 20 118/72 97 Room Air 09/26 1126 98.6 101 20 112/78 99 Room Air Intake & Output 09/27 1600 09/27 0800 09/27 0000 Intake Total 60 600 Output Total Balance 60 600 Intake, Oral 60 600 Number 0 Bowel Movements Physical Exam General Appearance: Alert, Oriented X3, Cooperative, No Acute Distress Skin: No Rashes, No Breakdown, No Significant Lesion Cardiovascular: Normal S1, Normal S2, irregular Lungs: Clear to Auscultation, Normal Air Movement Abdomen: Normal Bowel Sounds, Soft, No Tenderness, No Hepatospenomegaly, No Masses Neurological: right hemiplagia Extremities: No Cyanosis, Normal Pulses, BLLE +1 pedal edema Left LE erythema nad warm but no tenderness Right LE immobilizer Assessment/Plan Assessment: Ms. Berman is a pleasant 66 year old female with PMH atrial fibrillation on coumadin, history of hemorrhagic stroke status post craniotomy with residual right-sided hemiparesis, seizure disorder, depression, GERD, prior left anterior communicating artery aneurysm repair and recurrent oral bleeding who was brought to the [place] ED from [facility] after a witnessed fall out of a wheel chair. In the ED: Vital signs showed T 97.2, HR 72, RR 18, BP150/67, O2 97% on room air. Labs showed: WBC 11.2, H&H 11.4/ 35, normal electrolytes, creatinine 1.1 ( baseline 0.9), BUN 15, INR 1.91. Imaging showed: comminuted fracture distal femur with possible extension to the intra-articular surface, right knee. There is a right hip nail for an old healed right femoral neck fracture. Patient was admitted to the general medicine floor and the following is the management: 1. Mechanical fall with right femur fracture in non-ambulatory patient * Patient s/p traction and bracing by orthopedics on 09/25/16 * Patient is pain free except with palpation; provide roxicodone PRN for moderate to severe pain * No surgery at this time, will proceed with conservative management * Continue strict immobilization of right lower extremity * If patient transferred to wheel chair, elevate left rest and keep leg in extension * Monitor for decreased dorsalis pedis pulses/compartment syndrome/bleeding * Baclofen TID 2. Atrial fibrillation on coumadin * Stable, chronic * Check INR daily and dose coumadin accordingly--INR therapeutic 2.13 * 5 mg given today, home dose is 7.5 mg * Continue metoprolol for rate control, patient was given additional 12.5 mg metoprolol for rate control, we'll continue to monitor, if continued to be have tachycardia recommendation for telemetry transfer and to obtain CTA to rule out PE, obtain cardiology consultation if persist 3. History of seizures * Continue topiramate 4. Oropharyngeal bleeding * Continue oral care with peridex mouth wash FULL CODE DVTP: Warfarin Regular diet Mild to severe pain pathway Problem List: 1. UTI (lower urinary tract infection) 2. Abdominal pain 3. Fracture, femur, distal 4. Femur fracture, right 5. Fall 6. Closed head injury Pain Ratin Pain Location: NONE Pain Goal: Pain 4 or less Pain Plan: Moderate pathway Tomorrow's Labs & Rationales: CBC, BMP, Mg ERICA BRAVO MD 09/27/16 1455: Attending MD Review Statement Attending Statement Attending MD Statement: examined this patient, discuss w/resident/PA/STATISTICIAN APPLIED, agreed w/resident/PA/STATISTICIAN APPLIED, reviewed EMR data (avail) Attending Assessment/Plan: 66F PMH atrial fibrillation on coumadin, history of hemorrhagic stroke status post craniotomy with residual right-sided hemiparesis, seizure disorder, depression, GERD, history of right hip fracture s/p surgical repair admitted for fall with closed distal right tibial fracture. Conservative management, no surgery indicated. Pain is controlled, leg immobilized. Today patient had rapid atrial fibrillation 100-140's. Asymptomatic. INR therapeutic. Plan - Continue on general medicine - Given an additional 12.5mg Metoprolol PO in addition to her morning dose of the same - If HR remains elevated can transfer to telemetry for IV rate control - Cardiology consult if rate remains elevated - Consider CTA chest if tachycardia persists - Continue home medications - Follow orthopedic recommendations - Anticipated discharge to senior care tomorrow
[2016-09-27 08:36] LABS: ABSOLUTE BASOPHIL COUNT 0.1 /CUMM (0.0-0.2); ABSOLUTE EOSINOPHIL COUNT 0.5 /CUMM (0.0-0.7); ABSOLUTE GRANULOCYTE CT 6.2 /CUMM (1.4-6.5); ABSOLUTE LYMPH COUNT 1.8 /CUMM (1.2-3.4); ABSOLUTE MONOCYTE COUNT 0.8 /CUMM (0.10-0.60); BASOPHIL % 0.8 % (0.0-2.0); GRANULOCYTE % 66.4 % (42.2-75.2); HEMATOCRIT 30.4 % (37-47); MEAN CORPUSCULAR HGB CONC 32.9 G/DL (33.0-37.0); MEAN CORPUSCULAR VOLUME 91.1 FL (81.0-99.0); PLATELET COUNT 244 /CUMM (130-400); RBC DISTRIBUTION WIDTH 14.4 % (11.5-14.5); RED BLOOD CELL CT 3.34 /CUMM (4.20-5.40); WHITE BLOOD CELL COUNT 9.3 /CUMM (4.8-10.8)
[2016-09-27 10:45] VITALS: BP 142/82
[2016-09-27 11:15] VITALS: BP 144/82
[2016-09-27 14:43] VITALS: BP 130/80
[2016-09-27 22:38] VITALS: BP 132/76
[2016-09-28 07:00] VITALS: BP 140/76
--- NOTE | 2016-09-28 08:15 | PN- Housestaff ---
MARK DONALD,CARMENZA 09/28/16 0815: Subjective Follow-up For: Mechanical fall Right femur fracture Atrial fibrillation on Coumadin History of hemorrhagic stroke with residual right-sided hemiparesis Recurrent oral bleeding Subjective: Patient is seen and examined. Sleeping comfortably in bed. No events reported overnight. Not in any apparent distress. Alert and awake. Remains HDS and afebrile. Denies any fever, chills, chest discomfort, palpitations, dyspnea, abdominal pain, nausea, vomiting, headache. Review of Systems Constitutional: Reports: see HPI. Objective Last 24 Hrs of Vital Signs/I&O Vital Signs Date Time Temp Pulse Resp B/P B/P Pulse O2 O2 Flow FiO2 Mean Ox Delivery Rate 09/28 07 97.9 81 18 140/76 98 Room Air 09/27 2238 98.7 99 20 132/76 98 Room Air 09/27 1732 75 09/27 1500 103 98 Room Air 09/27 1443 98.4 109 16 130/80 100 Room Air 09/27 1311 115 144/82 09/27 1115 126 144/82 09/27 1045 113 142/82 09/27 1041 113 142/82 Intake & Output 09/28 1600 09/28 0800 09/28 0000 Intake Total 200 600 Output Total 1 Balance 200 599 Intake, Oral 200 600 Number 1 Bowel Movements Output, Urine 1 Physical Exam General Appearance: Alert, Oriented X3, Cooperative, No Acute Distress Other Physical Findings: Skin: No Rashes, No Significant Lesion HEENT: Atraumatic, PERRLA, EOMI, Dried blood over gums and on oral mucosa, poor denition with obvious gum disease Neck: Supple, No JVD, No thryomegaly Lymphatic: Cervical nl Cardiovascular: irregularly irregular Lungs: Normal Air Movement Abdomen: Normal Bowel Sounds, Soft, No Tenderness Neurological: Normal Speech, Normal Tone Extremities: Bilateral extremities slightly cool to touch, RLE externally rotated, diminished dorsalis pedis pulse, slightly swollen Current Medications: Current Medications Sig/Javier Start time Last Medication Dose Route Stop Time Status Admin Acetaminophen 1,000 MG Q6P PRN 09/25 1745 AC 09/28 N/A 1 UNIT IV 0836 Baclofen 10 MG TID 09/25 1729 AC 09/27 PO 223 Chlorhexidine 15 ML BID 09/25 1730 AC 09/27 Gluconate PO 2236 Citalopram 10 MG DAILY 09/26 1000 AC 09/27 Hydrobromide PO 1042 Ferrous Sulfate 325 MG BID 09/25 2200 AC 09/27 PO 2233 Gabapentin 100 MG AT BEDTIME 09/25 220 AC 09/27 PO 2233 Metoprolol Tartrate 12.5 MG ONCE ONE 09/27 1245 DC 09/27 PO 09/27 1246 1311 Metoprolol Tartrate 12.5 MG DAILY 09/26 1000 AC 09/27 PO 1041 Mirtazapine 7.5 MG QPM 09/25 2200 AC 09/27 PO 2233 Ondansetron HCl 4 MG Q6P PRN 09/25 1715 AC IV Oxycodone HCl 5 MG Q6 PRN 09/25 1600 AC 09/28 PO 0434 Pravastatin Sodium 20 MG 1700 09/26 1700 AC 09/27 PO 1620 Topiramate 200 MG BID 09/25 2200 AC 09/27 PO 2233 Warfarin Sodium 5 MG COUMADIN 1700 09/27 1700 DC 09/27 PO 09/27 1701 1622 Last 24 Hrs of Lab/Олег Results Last 24 Hrs of Labs/Mics: Laboratory Tests 09/28/16 0815: Sodium Pending, Potassium Pending, Chloride Pending, Carbon Dioxide Pending, Anion Gap Pending, BUN Pending, Creatinine Pending, BUN/Creatinine Ratio Pending , Magnesium Pending, PT Pending, INR Pending, CBC w Diff Pending, WBC Pending, RBC Pending, Hgb Pending, Hct Pending, MCV Pending, MCH Pending, RDW Pending, Plt Count Pending, MPV Pending, PUBS MCHC Pending 09/27/16 1208: TSH 2.100, Free T4 1.51 Assessment/Plan Assessment: Ms. Berman is a pleasant 66 year old female with PMH atrial fibrillation on coumadin, history of hemorrhagic stroke status post craniotomy with residual right-sided hemiparesis, seizure disorder, depression, GERD, prior left anterior communicating artery aneurysm repair and recurrent oral bleeding who was brought to the [place] ED from [facility] after a witnessed fall out of a wheel chair. 1. Mechanical fall with right femur fracture in non-ambulatory patient * Patient s/p traction and bracing by orthopedics on 09/25/16 * Patient is pain free at rest this morning. * Pain control with Roxicodone PRN for moderate to severe pain * No surgery at this time, will proceed with conservative management * Continue strict immobilization of right lower extremity * If patient transferred to wheel chair, elevate left rest and keep leg in extension * Monitor for decreased dorsalis pedis pulses/compartment syndrome/bleeding * Baclofen TID 2. Atrial fibrillation on coumadin * Stable, chronic * Check INR daily and dose coumadin accordingly--INR therapeutic 2.13 * 5 mg given today, home dose is 7.5 mg * Continue metoprolol for rate control, patient was given additional 12.5 mg metoprolol for rate control, we'll continue to monitor, if continued to be have tachycardia recommendation for telemetry transfer and to obtain CTA to rule out PE, obtain cardiology consultation if persist 3. History of seizures * Continue topiramate 4. Oropharyngeal bleeding * Continue oral care with peridex mouth wash FULL CODE DVTP: Warfarin Regular diet Mild to severe pain pathway Problem List: 1. Abdominal pain 2. UTI (lower urinary tract infection) 3. Fracture, femur, distal 4. Femur fracture, right 5. Fall 6. Closed head injury Pain Ratin Pain Location: 0 Pain Goal: Remain pain free Pain Plan: Mild pathway Tomorrow's Labs & Rationales: CBC (monitor for bleeding) INR (to dose coumadin) ERICA BRAVO MD 09/28/16 1054: Attending MD Review Statement Attending Statement Attending MD Statement: examined this patient, discuss w/resident/PA/SPINNING OPERATOR, agreed w/resident/PA/SPINNING OPERATOR, reviewed EMR data (avail) Attending Assessment/Plan: 66F PMH atrial fibrillation on coumadin, history of hemorrhagic stroke status post craniotomy with residual right-sided hemiparesis, seizure disorder, depression, GERD, history of right hip fracture s/p surgical repair admitted for fall with closed distal right tibial fracture. Conservative management, no surgery indicated. Pain is controlled, leg immobilized. Patient is asymptomatic today, rate controlled, no acute issues. Labs reviewed. Exam unremarkable. Plan - Stable for discharge back to alf - Continue home medications - Continue with physical therapy in alf - Outpatient orthopedic follow up depression, GERD, history of right hip fracture s/p surgical repair admitted for fall with closed distal right tibial fracture. Conservative management, no surgery indicated. Pain is controlled, leg immobilized. Patient is asymptomatic today, rate controlled, no acute issues. Labs reviewed. Exam unremarkable. Plan - Stable for discharge back to alf - Continue home medications - Continue with physical therapy in alf - Outpatient orthopedic follow up
[2016-09-28 09:08] VITALS: BP 128/72
[2016-09-28 13:54] LABS: PT 20.6 SEC (9.4-12.5)
--- NOTE | 2016-09-28 14:23 | Discharge Summary ---
Visit Information Visit Dates Admission Date: 09/25/16 Discharge Date: 09/28/16 Hospital Course Course Attending Physician: SEAN ASIF MD [facility]: Ms. 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 1. Mechanical fall with right femur fracture Patient s/p traction and bracing by orthopedics for closed femur fracture right femur on 09/25/16. Pain was controlled with Roxicodone PRN. No surgery was indicated at this time per orto. We pursued conservative management. Continued strict immobilization of right lower extremity. If patient transferred to wheel chair, elevate left rest and keep leg in extension. She received Baclofen TID. 2. Atrial fibrillation on coumadin INR was checked daily to dose coumadin for INR target goal of 2-3. Her home dose is 7.5 mg. We continued metoprolol for rate control. Patient was given additional 12.5 mg metoprolol for rate control initially. Tachycardia improved to 70s. 3. History of seizures Patient was kept on home dose of topiramate 4. Oropharyngeal bleeding Patient received oral care with peridex mouth wash. FULL CODE DVTP: Warfarin Regular diet Mild to severe pain pathway Allergies: Coded Allergies: tuberculin, purified protein deriva (UNKNOWN 09/25/16) Disposition Summary Disposition Principal Diagnosis: Closed femur fracture right femur Additional Diagnosis: N/A Discharge Disposition: SNF Discharge Instructions General Discharge Information Code Status: Full Code Patient's Diet: Regular Patient's Activity: non weight bearing Follow-Up Instructions/Appts: Follow up with orthopedist Dr. Estevez and PCP within 7 days. Patient to remain non weight bearing Medications at Discharge Discharge Medications: Continue taking these medications: Baclofen (Lioresal) 10 MG TABLET 1 Tablet ORAL THREE TIMES DAILY Calcium/Vitamin D (Calcium + D) 600 MG/200 IU TAB 1 Tablet ORAL TWICE DAILY Chlorhexidine Gluconate (Peridex 480 Ml) 480 ML LIQ 15 Milliliters ORAL TWICE DAILY Docusate Sodium (Docusate Sodium) 100 MG CAPSULE 2 Capsule ORAL DAILY SENNOSIDES/DOCUSATE SODIUM (Dok Plus Tablet) 8.6 MG-50 MG TABLET 1 Tablet ORAL AT BEDTIME Gabapentin (Neurontin) 100 MG CAP 1 Capsule ORAL AT BEDTIME Metoprolol Tartrate (Metoprolol Tartrate) 25 MG TABLET 0.5 Tablet ORAL Every Day Mirtazapine (Remeron 15MG Tab) 15 MG TABLET 0.5 Tablet ORAL Every night Pravastatin Sodium (Pravastatin) 20 MG TAB 1 Tablet ORAL Every night MULTIVITAMIN (Tab-A-Marlin) 1 EACH TABLET 1 Tablet ORAL DAILY Topiramate (Topamax) 200 MG TAB 1 Tablet ORAL TWICE DAILY Citalopram Hydrobromide (Citalopram HBr) 10 MG TABLET 1 Tablet ORAL DAILY Qty = 30 Ferrous Sulfate (Ferrous Sulfate) 325 MG (65 MG IRON) TABLET Polyethylene Glycol 3350 (Miralax) 17 GRAM POWD.PACK 1 Packet ORAL TWICE DAILY Instructions: dissolve in water Warfarin Sodium (Coumadin) 7.5 MG TABLET 1 Tablet ORAL DAILY Start taking the following new medications: Oxycodone HCl (Oxycodone HCl) 5 MG CAPSULE 1 Capsule ORAL EVERY SIX HOURS NEEDED as needed for MODERATE TO SEVERE PAIN Qty = 1 No Refills Copies To: VERENA ESTEVEZ MD; IRIS DONALD,MTheo GLYNN
[2016-09-28 14:52] VITALS: BP 128/72
== END 2016-09-28 15:30 | DRG 534 ==
LOC: ERH 12:41 → 2NB 15:38 → ERHI 15:38 → ENRESERV 16:57 → ENTRNSPT 18:31 → 2NB 18:40 → CMPTRNSPT 18:51 → ENPENDDIS 09-28 10:55 → 2NB 09-28 15:30
PROVIDERS: Student in an Organized Health Care Education/Training Program; ADMIT Hospitalist
DX: S72.401A Unspecified fracture of lower end of right femur, initial encounter for closed fracture (principal); I69.951 Hemiplegia and hemiparesis following unspecified cerebrovascular disease affecting right dominant side; I48.91 Unspecified atrial fibrillation; F32.9 Major depressive disorder, single episode, unspecified; W05.0XXA Fall from non-moving wheelchair, initial encounter; Z91.81 History of falling; Z79.01 Long term (current) use of anticoagulants; K21.9 Gastro-esophageal reflux disease without esophagitis; Z99.3 Dependence on wheelchair
CPT/HCPCS: 2NBSP; 36415; 72170; 73552; 73590-RT; 73600-RT; 82436; 93005; 93010; 96374; 96375; J0131; J2405